=== PATIENT | female | born 1985 | race Caucasian/White ===

== ENCOUNTER 2021-01-29 11:37 | Emergency (ER) | payer MEDICAID, SELFPAY ==
[2021-01-29 11:48] VITALS: BP 162/91; PULSE 69; RESP 16; TEMP 37.1; O2SAT 99; BMI 25.9
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
[2021-01-29] MEDS: LORazepam 1 MG TABLET PO (14:52)
[2021-01-29] MEDS: Buprenorphine/Naloxone 8/2 mg FILM 1 FILM SUBLINGUAL (14:52)
[2021-01-29 14:53] VITALS: BP 154/97; PULSE 59; RESP 16; O2SAT 99
== END 2021-01-29 15:27 | disposition home or self-care (01) ==
PROVIDERS: Emergency Provider Emergency Medicine
DX: F11.13 Opioid abuse with withdrawal (principal); I10 Essential (primary) hypertension
CPT/HCPCS: 99284

== ENCOUNTER → 2021-02-02 13:02 | Outpatient (BNVA) | payer MEDICAID, SELFPAY | PROVIDERS: Visit Provider Internal Medicine | DX: F11.99 Opioid use, unspecified with unspecified opioid-induced disorder (principal) | CPT/HCPCS: 80305; 99202 ==

== ENCOUNTER → 2021-02-09 10:53 | Outpatient (BNVA) | payer MEDICAID, SELFPAY | PROVIDERS: Visit Provider Internal Medicine | DX: Z51.81 Encounter for therapeutic drug level monitoring (principal) | CPT/HCPCS: 80305 ==

== ENCOUNTER → 2021-03-02 14:48 | Outpatient (BNVA) | payer MEDICAID, SELFPAY | PROVIDERS: PCP Physician Assistant; Visit Provider Internal Medicine | DX: F11.99 Opioid use, unspecified with unspecified opioid-induced disorder (principal) | CPT/HCPCS: 80305; 99212 ==

== ENCOUNTER 2021-04-08 14:08 | Outpatient (REF) | payer OTHER, SELFPAY ==
[2021-04-09 10:37] LABS: CT PCR NOT DETECTED (Not Detect.); NG PCR NOT DETECTED (Not Detect.)
[2021-04-09 12:01] LABS: BV Int Neg Control Negative (Negative); BV Int Pos Control Positive (Positive)
[2021-04-13 21:06] LABS: HPV mRNA E6/E7 rflx Not Detected (Not Detected)
== END 2021-04-08 14:09 | disposition home or self-care (01) ==
LOC: HO.LAB 14:08
PROVIDERS: Visit Provider Advanced Practice Midwife
DX: Z01.419 Encounter for gynecological examination (general) (routine) without abnormal findings (principal); Z11.3 Encounter for screening for infections with a predominantly sexual mode of transmission; Z11.51 Encounter for screening for human papillomavirus (HPV); Z20.2 Contact with and (suspected) exposure to infections with a predominantly sexual mode of transmission; F11.99 Opioid use, unspecified with unspecified opioid-induced disorder; N91.1 Secondary amenorrhea
CPT/HCPCS: 87480; 87491; 87510; 87591; 87624; 87660; 88142

== ENCOUNTER 2021-05-25 15:32 | Emergency (ER) | payer OTHER, SELFPAY ==
[2021-05-25 16:41] VITALS: BP 170/103; PULSE 103; RESP 18; TEMP 36.9; O2SAT 100; BMI 25.6
--- NOTE | 2021-05-25 20:01 | PC.NURSE ---
1952: called twice to c no answer.
[2021-05-25 21:24] VITALS: BP 175/120; PULSE 67; RESP 16; O2SAT 98
[2021-05-25 21:35] LABS: MANUAL DIFF FLAG NO
[2021-05-25 21:36] LABS: Basophils Percent Auto 0.3 % (0-2); Eosinophils Percent Auto 0.2 % (0-4); Hematocrit 37.8 % (37-47); Hemoglobin 12.8 g/dl (12.0-16.0); Imm Gran Abs Auto 0.01 X10*3/uL (0.00-0.03); Imm Gran Pct Auto 0.2 % (0.0-0.4); Lymphocytes Absolute Auto 1.1 X10*3/uL (1.2-4.9); Lymphocytes Percent Auto 17.5 % (20-40); Mean Corpuscular HGB Conc 33.9 g/dl (31.0-35.0); Mean Corpuscular Volume 88.7 fL (80-98); Mean Platelet Volume 10.1 fL (9.4-12.3); Monocytes Absolute Auto 0.2 X10*3/uL (0.1-1.2); Monocytes Percent Auto 2.9 % (2-11); Neutrophils Percent Auto 78.9 % (45-73); Platelet Count 241 X10*3/uL (160-400); Red Blood Count 4.26 X10*6/uL (4.20-5.50); Red Cell Distribution Width 12.1 % (11.0-16.0); White Blood Count 6.3 X10*3/uL (4.8-10.8)
[2021-05-25 22:07] LABS: Alanine Aminotransferase 10 U/L (0-31); Alkaline Phosphatase 59 U/L (39-117); Anion Gap 13 (12-20); Aspartate Amino Transferase 11 U/L (5-31); Bilirubin Direct 0.2 mg/dL (0.0-0.5); Bilirubin Total 0.7 mg/dL (0.0-1.0); Blood Urea Nitrogen 20 mg/dL (9-16); Calcium 9.9 mg/dL (8.4-10.2); Carbon Dioxide 26 mmol/L (22-29); Chloride 106 mmol/L (96-108); Creatinine Clr Calc Pharmacy 78.4; Estimated Glomerular Filt Rate > 60; Glucose Random 93 mg/dL (60-115); Lipase 28 U/L (8-78); Magnesium 2.3 mg/dL (1.6-2.6); Potassium 3.7 mmol/L (3.3-5.1); Sodium 141 mmol/L (135-145); Total Protein 8.5 g/dL (6.5-8.0)
[2021-05-25 23:14] VITALS: BP 163/84; PULSE 56; RESP 18; O2SAT 99
--- NOTE | 2021-05-25 23:20 | ED_ITS ---
HPI - General Adult General Chief complaint: General Medical Stated complaint: withdrawl Time Seen by Provider: 05/25/21 17:25 Source: patient Mode of arrival: ambulatory History of Present Illness HPI narrative: 35-year-old female with a past medical history of tubal ligation, HTN, substance abuse presenting to the ED complaining of withdrawal symptoms of nausea, vomiting, abdominal discomfort, tremors x2 days. Admits to using heroin, admits usually snorts 5-6 packs daily, uses cocaine, and marijuana, reports last use of any illicit drugs was 2 days ago. Also reports stopped taking Suboxone. Denies SI/HI. Denies fever, chills, CP/SOB Onset (ago): day(s) Related Data Previous Rx's Medication Instructions Recorded buprenorphine 8 mg-naloxone 2 mg 1 film SUBLINGUAL DAILY 7 Days #7 03/02/21 sublingual film (Suboxone) ea medroxyprogesterone 10 mg tablet 10 mg PO DAILY #10 tab 04/08/21 (Provera) Allergies Allergy/AdvReac Type Severity Reaction Status Date / Time sulfamethoxazole Allergy Hives Verified 04/08/21 14:43 [From Bactrim] trimethoprim [From Bactrim] Allergy Hives Verified 04/08/21 14:43 Review of Systems Review of Systems: Constitutional: No Fever, No Chills, No Fatigue, No Malaise ENT/Mouth: No Ear Pain, No Nasal Congestion, No sore throat, No Rhinorrhea, No Swallowing Difficulty Eyes: No Eye Pain, No Redness Cardiovascular: No Chest Pain, No SOB, No Edema Respiratory: No Cough, No Dyspnea Gastrointestinal: + Nausea, + Vomiting, No Diarrhea, No Constipation, + Abdominal pain Genitourinary: No Dysuria, No Urinary Frequency, No Hematuria, No Flank Pain Musculoskeletal: No joint pain, + Myalgias, No Joint Swelling Skin: No Skin Lesions, No rash Neuro: No Weakness, No Numbness, No Headache Psych: No Anxiety/Panic, No Depression, No SI/HI No Social Issue, Yes all other systems are reviewed and are negative [facility] Past Medical History Attestation statement: The following information was validated with the patient. Medical History Hypertension Opioid use disorder Surgical History H/O tubal ligation Social History Social History Substance Use Type: Crack/Cocaine and Heroin Advance Directives: No Advance Directives Information Provided: Yes Patient : No Physical Exam Vital Signs: Vital Signs: Last Vital Signs Temp 98.5 F 05/25/21 16:41 Pulse 56 05/25/21 23:14 Resp 18 05/25/21 23:14 BP 163/84 H 05/25/21 23:14 Pulse Ox 99 05/25/21 23:14 Body Mass Index 25.6 Const: General: cooperative, healthy appearing and no acute distress Orientation/consciousness: patient oriented x3 Limitations: no limitations HENMT: Head: Yes normal to inspection Ears: hearing grossly normal bilaterally General nose exam: Normal external nose present Face and sinus: Yes normal facial exam Eyes: General: appearance normal, both eyes and all related structures Pupils: Dilated pupils bilaterally EOM: EOMs intact bilaterally Direct Op hthalmoscopy: normal light reflex Neck: Neck: Yes normal visual inspection and Yes supple Resp: Effort & Inspection: normal respiratory effort Auscultation: clear to auscultation bilaterally, no rales, no rhonchi and no wheezes Cardio: Rate: regular rate Heart sounds: S1 normal heart sound present and S2 normal heart sound present GI: Inspection: Yes normal to inspection Palpation (GI): Soft to palpation, nontender, no guarding and not rigid Skin: Wounds: no wounds Neuro: General: patient oriented x3, gait normal and tone normal Gait exam (Neuro): Normal gait present Extrem: General: Yes normal to inspection Psych: Thought content: suicidality and no homicidality Course Course Course Narrative: -tox screen positive for opiates, fentanyl, cocaine, and marijuana -care team consulted, who called a couple detox center's however no beds available tonight, patient is willing to stay in the ED overnight for recovery team to see her in a.m. to continue detox bed search. patient placed in physician observation -0100--ED care transferred to Dr. Wooten pending detox/assistant wrestling coach eval Medical Decision Making MDM Narrative Medical decision making narrative: 35-year-old female with a past medical history of tubal ligation, HTN, substance abuse presenting to the ED complaining of withdrawal symptoms of nausea, vomiting, abdominal discomfort, tremors x2 days. On exam initially hypertensive, patient LWT'ed however returned to the ED, NAD/nontoxic appearing. Patient is interested in detox. Denies SI/HI. Labs drawn from earlier WNL Will obtain MICHAELS/UA and care team consult for detox Lab Data Result diagrams: 05/25/21 21:30 05/25/21 21:30 Labs: Lab Results 05/25/21 05/25/21 05/25/21 Range/Units 21:30 21:30 23:18 WBC 6.3 (4.8-10.8) X10*3/uL RBC 4.26 (4.20-5.50) X10*6/uL Hgb 12.8 (12.0-16.0) g/dl Hct 37.8 (37-47) % MCV 88.7 (80-98) fL MCH 30.0 (27.0-33.0) pg MCHC 33.9 (31.0-35.0) g/dl RDW 12.1 (11.0-16.0) % Plt Count 241 (160-400) X10*3/uL MPV 10.1 (9.4-12.3) fL Immature Gran % (Auto) 0.2 (0.0-0.4) % Neut % (Auto) 78.9 H (45-73) % Lymph % (Auto) 17.5 L (20-40) % Tillman % (Auto) 2.9 (2-11) % Eos % (Auto) 0.2 (0-4) % Baso % (Auto) 0.3 (0-2) % Lymph # (Auto) 1.1 L (1.2-4.9) X10*3/uL Tillman # (Auto) 0.2 (0.1-1.2) X10*3/uL Eos # (Auto) 0.0 (0.0-0.4) X10*3/uL Baso # (Auto) 0.0 (0.0-0.2) X10*3/uL Abs Immat Gran (auto) 0.01 (0.00-0.03) X10*3/uL Absolute Neuts (auto) 5.0 (2.0-8.3) X10*3/uL Absolute Nucleated RBC 0.000 (0.0-0.012) X10*3/uL Nucleated RBC % (auto) 0.0 (0.0-0.2) /100WBC Sodium 141 (135-145) mmol/L Potassium 3.7 (3.3-5.1) mmol/L Chloride 106 (96-108) mmol/L Carbon Dioxide 26 (22-29) mmol/L Anion Gap 13 (12-20) BUN 20 H (9-16) mg/dL Creatinine 0.86 (0.5-1.4) mg/dL Estim Creat Clear Calc 78.4 Estimated GFR > 60 Random Glucose 93 (60-115) mg/dL Calcium 9.9 (8.4-10.2) mg/dL Magnesium 2.3 (1.6-2.6) mg/dL Total Bilirubin 0.7 (0.0-1.0) mg/dL Direct Bilirubin 0.2 (0.0-0.5) mg/dL AST 11 (5-31) U/L ALT 10 (0-31) U/L Alkaline Phosphatase 59 (39-117) U/L Total Protein 8.5 H (6.5-8.0) g/dL Albumin 5.0 (3.5-5.0) g/dL Lipase 28 (8-78) U/L Urine Color YELLOW Urine Appearance CLEAR Urine pH 6.5 (5.0-8.0) Ur Specific [place] >= 1.030 H (1.005-1.025) Urine Protein 2+ H (NEG-TRACE) MG/DL Urine Glucose (UA) NEG (NEG) MG/DL Urine Ketones >=80 (NEG) MG/DL Urine Blood 1+ H (NEG) Urine Nitrite NEG (NEG) Ur Leukocyte Esterase NEG (NEG) Urine RBC 0-2 (0) /HPF Urine WBC 0-2 (0-4) /HPF Ur Squamous Epith Cells TRACE /LPF Urine Bacteria 1+ /LPF Urine Mucus 1+ /LPF Urine Opiates Screen (Not Detect) Urine Fentanyl Screen (Not Detect) Ur Barbiturates Screen (Not Detect) Ur Phencyclidine Scrn (Not Detect) Ur Amphetamines Screen (Not Detect) U Benzodiazepines Scrn (Not Detect) Urine Cocaine Screen (Not Detect) U Marijuana (THC) Screen (Not Detect) 05/25/21 Range/Units 23:18 WBC (4.8-10.8) X10*3/uL RBC (4.20-5.50) X10*6/uL Hgb (12.0-16.0) g/dl Hct (37-47) % MCV (80-98) fL MCH (27.0-33.0) pg MCHC (31.0-35.0) g/dl RDW (11.0-16.0) % Plt Count (160-400) X10*3/uL MPV (9.4-12.3) fL Immature Gran % (Auto) (0.0-0.4) % Neut % (Auto) (45-73) % Lymph % (Auto) (20-40) % Tillman % (Auto) (2-11) % Eos % (Auto) (0-4) % Baso % (Auto) (0-2) % Lymph # (Auto) (1.2-4.9) X10*3/uL Tillman # (Auto) (0.1-1.2) X10*3/uL Eos # (Auto) (0.0-0.4) X10*3/uL Baso # (Auto) (0.0-0.2) X10*3/uL Abs Immat Gran (auto) (0.00-0.03) X10*3/uL Absolute Neuts (auto) (2.0-8.3) X10*3/uL Absolute Nucleated RBC (0.0-0.012) X10*3/uL Nucleated RBC % (auto) (0.0-0.2) /100WBC Sodium (135-145) mmol/L Potassium (3.3-5.1) mmol/L Chloride (96-108) mmol/L Carbon Dioxide (22-29) mmol/L Anion Gap (12-20) BUN (9-16) mg/dL Creatinine (0.5-1.4) mg/dL Estim Creat Clear Calc Estimated GFR Random Glucose (60-115) mg/dL Calcium (8.4-10.2) mg/dL Magnesium (1.6-2.6) mg/dL Total Bilirubin (0.0-1.0) mg/dL Direct Bilirubin (0.0-0.5) mg/dL AST (5-31) U/L ALT (0-31) U/L Alkaline Phosphatase (39-117) U/L Total Protein (6.5-8.0) g/dL Albumin (3.5-5.0) g/dL Lipase (8-78) U/L Urine Color Urine Appearance Urine pH (5.0-8.0) Ur Specific [place] (1.005-1.025) Urine Protein (NEG-TRACE) MG/DL Urine Glucose (UA) (NEG) MG/DL Urine Ketones (NEG) MG/DL Urine Blood (NEG) Urine Nitrite (NEG) Ur Leukocyte Esterase (NEG) Urine RBC (0) /HPF Urine WBC (0-4) /HPF Ur Squamous Epith Cells /LPF Urine Bacteria /LPF Urine Mucus /LPF Urine Opiates Screen POSITIVE H (Not Detect) Urine Fentanyl Screen POSITIVE H (Not Detect) Ur Barbiturates Screen Not Detected (Not Detect) Ur Phencyclidine Scrn Not Detected (Not Detect) Ur Amphetamines Screen Not Detected (Not Detect) U Benzodiazepines Scrn Not Detected (Not Detect) Urine Cocaine Screen POSITIVE H (Not Detect) U Marijuana (THC) Screen POSITIVE H (Not Detect) Discharge Plan Discharge Clinical Impression: Substance abuse Instructions: Narcotic Withdrawal (ED), Narcotic Use Disorder (ED) Additional Instructions: Do not do drugs or drink alcohol it can kill you Please go to detox as discussed If you have any thoughts of hurting herself or hurting others please return to the ED Prescriptions: No Action buprenorphine-naloxone [Suboxone] 8-2 mg film 1 film sublingual DAILY 7 Days Qty: 7 RF: 0 medroxyprogesterone [Provera] 10 mg tablet 10 mg PO DAILY Qty: 10 RF: 0 Referrals: [facility] [Physician] - 2 days Interventions: LWBS Worksheet Last Done: 05/25/21 19:56
[2021-05-25 23:38] LABS: Glucose Urine UA NEG (NEG); Leukocyte Esterase Urine NEG (NEG); Nitrite Urine NEG (NEG); PH 6.5 (5.0-8.0); Specific Gravity - Urine >= 1.030 (1.005-1.025); UACC Culture Trigger NO; Urine Blood 1+ (NEG); Urine Ketones >=80 MG/DL (NEG); Urine Protein 2+ MG/DL (NEG-TRACE)
[2021-05-25 23:41] LABS: Appearance Urine CLEAR; Color Urine YELLOW
[2021-05-26 00:08] LABS: Amphetamine Screen Urine Not Detected (Not Detect); Barbiturates, Urine Not Detected (Not Detect); Benzodiazepines Screen Urine Not Detected (Not Detect); Cannabinoid Screen Urine POSITIVE (Not Detect); Cocaine Screen Urine POSITIVE (Not Detect); Fentanyl, urine POSITIVE (Not Detect); Opiate Screen Urine POSITIVE (Not Detect); Phencyclidine Screen Urine Not Detected (Not Detect)
[2021-05-26 00:15] LABS: Bacteria Urine 1+ /LPF; Mucus Urine 1+ /LPF; RBC Urine 0-2 /HPF (0); Squamous Epithelial Cell Urine TRACE /LPF; WBC Urine 0-2 /HPF (0-4)
[2021-05-26 01:01] VITALS: BP 170/89; PULSE 56; RESP 12; O2SAT 100
--- NOTE | 2021-05-26 01:25 | MHC.CARE ---
Met with pt for consult. Pt is intersted in detox services for heroin. She states she last used two days ago and is interested in detox. She will remain in the ED and states she will attempt to go to sleep. Provider Ness is in agreement with this as pt seems determined for treatment.
[2021-05-26 07:25] VITALS: BP 154/89; PULSE 62; RESP 18; O2SAT 99
--- NOTE | 2021-05-26 09:15 | MHC.RECOVRN ---
T/w spoke with pt to discuss substance use and treatment options. Pt declines referrals to ATS. Pt would like to restart Suboxone, has been on it in the past. Per [facility], pts last script was filled 03/02 for 8/2 mg daily x 7 days. Pt would like to reconnect with the [facility]. Pt reports using heroin, 5-6 bags IN daily, last use 2 days ago. Pt reports withdrawal symptoms-vomiting, diarrhea, restlessness. Pt educated regarding precipitated withdrawal and verbalizes understanding. Case discussed with JAI Celeste. Plan to give pt one dose of Suboxone, monitor, and send script to pharmacy. Pt has appt at the [facility] on 05/31 at 1 pm.
[2021-05-26] MEDS: Buprenorphine/Naloxone 8/2 mg FILM 1 FILM SUBLINGUAL (09:59)
== END 2021-05-26 10:51 | disposition home or self-care (01) ==
PROVIDERS: Physician Assistant; Emergency Provider Emergency Medicine Emergency Medical Services
DX: F11.13 Opioid abuse with withdrawal (principal); I10 Essential (primary) hypertension; R11.2 Nausea with vomiting, unspecified; R10.9 Unspecified abdominal pain; R25.1 Tremor, unspecified; F14.90 Cocaine use, unspecified, uncomplicated; Z79.899 Other long term (current) drug therapy
CPT/HCPCS: 36415; 80048; 80076; 80307; 81001; 83690; 83735; 85025; 99284

== ENCOUNTER → 2021-05-31 13:38 | Outpatient (BNVA) | payer OTHER, SELFPAY | PROVIDERS: Visit Provider Internal Medicine | DX: F11.20 Opioid dependence, uncomplicated (principal); F14.90 Cocaine use, unspecified, uncomplicated; Z51.81 Encounter for therapeutic drug level monitoring; Z79.899 Other long term (current) drug therapy | CPT/HCPCS: 80305; 99212 ==

== ENCOUNTER → 2021-08-02 10:09 | Outpatient (BNVA) | payer OTHER, SELFPAY | PROVIDERS: Visit Provider Internal Medicine | DX: F11.99 Opioid use, unspecified with unspecified opioid-induced disorder (principal); I10 Essential (primary) hypertension; F14.90 Cocaine use, unspecified, uncomplicated; F17.210 Nicotine dependence, cigarettes, uncomplicated | CPT/HCPCS: 80305; 99212 ==

== ENCOUNTER 2021-09-01 19:22 | Emergency (ER) | payer OTHER, SELFPAY ==
[2021-09-01 19:27] VITALS: BP 191/89; PULSE 91; RESP 18; TEMP 36.8; O2SAT 100; BMI 26.6
--- NOTE | 2021-09-01 20:02 | ED.GENADULT ---
HPI - General Adult General Chief complaint: General Medical Stated complaint: Medication refill Time Seen by Provider: 09/01/21 19:35 Source: patient Mode of arrival: ambulatory Limitations: no limitations History of Present Illness HPI narrative: 36-year-old female with history of HTN, opioid use disorder, cocaine and marijuana abuse and recent opioid relapse and re-initiation of Suboxone by Dr. Brown on 08/02 presents to the ER for a dose of Suboxone. She states her last dose was 5 days ago. She breaks apart the Suboxone and makes it last for longer than it is intended for. She reported in triage her last use of drugs was about a month ago. She admitted to this sql report writer that she last used intranasal heroin 3 days ago. MD complaint: Opiate withdrawal Onset (ago): day(s) Location: head, chest and abdomen Radiation: non-radiation Severity: moderate Quality: aching Pain Consistency: constant Relieving factors: none Exacerbating factors: none Associated symptoms: diaphoresis, fever/chills, headaches, loss of appetite, malaise and nausea/vomiting Treatments prior to arrival: none Related Data Previous Rx's Medication Instructions Recorded buprenorphine 8 mg-naloxone 2 mg 1 film SUBLINGUAL DAILY 7 Days #7 03/02/21 sublingual film (Suboxone) ea buprenorphine 8 mg-naloxone 2 mg 2 film SUBLINGUAL DAILY 7 Days #14 08/02/21 sublingual film (Suboxone) ea ondansetron 4 mg disintegrating 4 mg PO Q8H PRN #7 tab 09/01/21 tablet Allergies Allergy/AdvReac Type Severity Reaction Status Date / Time sulfamethoxazole Allergy Hives Verified 09/01/21 19:27 [From Bactrim] trimethoprim [From Bactrim] Allergy Hives Verified 08/02/21 10:19 Review of Systems Review of Systems: Constitutional: + Fever, + Chills ENT/Mouth: No sore throat, No Rhinorrhea, No Swallowing Difficulty Cardiovascular: No Chest Pain, No SOB, No Orthopnea, No Edema Respiratory: No Cough, No Sputum, No Wheezing, No dyspnea Gastrointestinal: + Nausea, + Vomiting, + Diarrhea, No abdominal Pain, No Hematochezia, No Melena Genitourinary: No Dysuria, No Urinary Frequency, No Hematuria Musculoskeletal: No joint pain, No Myalgias Skin: No Skin Lesions, No rash Neuro: No Weakness, No Numbness, No Dizziness, + Headache Psych: + Anxiety/Panic, + Depression, No SI Heme/Lymph: No Bruising, No Lymphadenopathy PMF Past Medical History Medical History Cocaine use Hypertension Opioid use disorder Surgical History H/O tubal ligation Social History Social History Alcohol intake: former Patient Tobacco Use Status: Current everyday Tobacco user Cigarettes Per Day: 4 Years Smoked: 10 Substance Use Type: Crack/Cocaine and Heroin Advance Directives: No Advance Directives Information Provided: No Patient : No Physical Exam Vital Signs: Vital Signs: Last Vital Signs Temp 98.2 F 09/01/21 19:27 Pulse 90 09/01/21 21:15 Resp 18 09/01/21 19:27 BP 191/83 H 09/01/21 21:15 Pulse Ox 100 09/01/21 19:27 Body Mass Index 26.6 Appearance: Alert. Oriented X3. No acute distress, lying on the recliner curled in a ball. Not diaphoretic or tremulous Eyes: Pupils equal, round and reactive to light. ENT: Pharynx normal. Neck: Normal inspection. Neck supple. CVS: Normal heart rate and rhythm. Pulses normal. Respiratory: No respiratory distress. Breath sounds normal. Abdomen: Soft and nontender. +BS x4 Skin: Skin warm and dry. Normal skin color. Normal skin turgor. No rashes. Extremities: No track burciaga on UE Neuro: Oriented X 3. No motor deficit. No sensory deficit. Course Course Course Narrative: 36-year-old female with history of opioid use disorder and current struggling with relapse presents to the ER for Suboxone dose. She was seen by on August 02 and given 1 week worth of Suboxone at that time. She did not present back to the clinic as she was instructed to. She presents to the ER asking for Suboxone today. She is hypertensive 191/89, HR 91. She reports her blood pressure is always very high and she is no longer taking her previously prescribed blood pressure medications, she cannot remember the name of them. She just moved here from [place] not very long ago. Reevaluation(s) Reevaluation #1: Urine toxicology is positive for fentanyl & cocaine. She admits using intranasal heroin 3 days ago. We discussed the risks and benefits of Suboxone with recent heroin use. She would most likely experience vomiting and worsening symptoms if she were to get Suboxone today in the emergency department. Will treat her symptoms with clonidine, Zofran, Imodium. She does not appear in any distress and she appears comfortable. She agrees follow-up with Dr. Brown. She is not interested in detox at this time. She is stable for [place] home with plan to follow up with recovery services here on Sunday. Medical Decision Making Lab Data Labs: Lab Results 09/01/21 Range/Units 20:12 Urine Opiates Screen Not Detected (Not Detect) Urine Fentanyl Screen POSITIVE H (Not Detect) Ur Barbiturates Screen Not Detected (Not Detect) Ur Phencyclidine Scrn Not Detected (Not Detect) Ur Amphetamines Screen Not Detected (Not Detect) U Benzodiazepines Scrn Not Detected (Not Detect) Urine Cocaine Screen POSITIVE H (Not Detect) U Marijuana (THC) Screen Not Detected (Not Detect) Discharge Plan Discharge Clinical Impression: Opioid use disorder, Cocaine use Patient Disposition: Home, Self-Care Instructions: Cocaine Abuse (ED), Opioid Use Disorder (ED) Additional Instructions: Take the prescribed medication as needed for nausea Your urine was positive for fenanyl and cocaine - unable to safely give you Suboxone today. Recommend CONTINUED SOBRIETY - STAY AWAY FROM HEROIN AND FENTANYL. IT CAN KILL YOU Follow up with Dr. Brown in the Suboxone Clinic on Sunday Prescriptions: New ondansetron 4 mg tablet,disintegrating 4 mg PO Q8H PRN (Reason: nausea and vomiting) Qty: 7 RF: 0 No Action buprenorphine-naloxone [Suboxone] 8-2 mg film 1 film sublingual DAILY 7 Days Qty: 7 RF: 0 buprenorphine-naloxone [Suboxone] 8-2 mg film 2 film sublingual DAILY 7 Days Qty: 14 RF: 0
[2021-09-01 20:37] LABS: Amphetamine Screen Urine Not Detected (Not Detect); Barbiturates, Urine Not Detected (Not Detect); Benzodiazepines Screen Urine Not Detected (Not Detect); Cannabinoid Screen Urine Not Detected (Not Detect); Cocaine Screen Urine POSITIVE (Not Detect); Fentanyl, urine POSITIVE (Not Detect); Opiate Screen Urine Not Detected (Not Detect); Phencyclidine Screen Urine Not Detected (Not Detect)
[2021-09-01 21:15] VITALS: BP 191/83; PULSE 90
[2021-09-01] MEDS: Loperamide HCl 2 MG CAPSULE PO (21:15)
[2021-09-01] MEDS: Ondansetron ODT 4 MG TAB.RAPDIS TRANSLINGU (21:15)
[2021-09-01] MEDS: cloNIDine HCL 0.1 MG TABLET PO (21:15)
== END 2021-09-01 21:48 | disposition home or self-care (01) ==
PROVIDERS: Physician Assistant; Emergency Provider Student in an Organized Health Care Education/Training Program; PCP Physician Assistant
DX: F11.20 Opioid dependence, uncomplicated (principal); F14.90 Cocaine use, unspecified, uncomplicated; R11.10 Vomiting, unspecified; I10 Essential (primary) hypertension; R68.83 Chills (without fever)
CPT/HCPCS: 80307; 99284

== ENCOUNTER 2021-09-03 11:37 | Emergency (ER) | payer OTHER, SELFPAY ==
[2021-09-03 11:40] VITALS: BP 147/99; PULSE 100; RESP 18; TEMP 36.7; O2SAT 98; BMI 25.9
--- NOTE | 2021-09-03 11:59 | ED_ITS ---
HPI - General Adult General Chief complaint: General Medical Stated complaint: medication Time Seen by Provider: 09/03/21 11:44 Source: patient Mode of arrival: ambulatory Limitations: no limitations History of Present Illness HPI narrative: 36-year-old female with opioid use disorder presents because able to and Suboxone does. She takes Suboxone, 8mg-2mg, and states she has not had it in 4 days. She told me she has not used recently. States that she had an appointment at the clinic, but she was late for her appointment and then the clinic has been closed for the holiday. States she has had diarrhea, and feels nauseous. Patient was prescribed a 7 day supply of Suboxone on 08/02/2021, and patient states she does not always take Suboxone every day. She breaks film and half and takes that as needed. Paras from the [facility] came and spoke with patient. Patient wants to get back on Suboxone. Patient told Paras that her last use was Sunday, 5 days ago. Rain states she is in a safe window to not precipitate withdrawal, as she has had no opioid use in the last 5 days. Plan is to give Suboxone now, and Dr. nicholson can write a bridge script until patient is seen in clinic on Sunday. [facility], and patient will be advised to go there Sunday. Related Data Previous Rx's Medication Instructions Recorded buprenorphine 8 mg-naloxone 2 mg 1 film SUBLINGUAL DAILY 7 Days #7 03/02/21 sublingual film (Suboxone) ea buprenorphine 8 mg-naloxone 2 mg 2 film SUBLINGUAL DAILY 7 Days #14 08/02/21 sublingual film (Suboxone) ea ondansetron 4 mg disintegrating 4 mg PO Q8H PRN #7 tab 09/01/21 tablet Allergies Allergy/AdvReac Type Severity Reaction Status Date / Time sulfamethoxazole Allergy Hives Verified 09/01/21 19:27 [From Bactrim] trimethoprim [From Bactrim] Allergy Hives Verified 08/02/21 10:19 Review of Systems Constitutional: Constitutional: Reports body ache(s), Denies chills, Reports fatigue, Denies fever(s), Denies headache(s), Denies malaise and Denies weakness Eyes: Eyes: Denies diplopia ENT: Denies vertigo, Denies dizziness, Denies otalgia, Denies headache(s), Denies mouth pain, Denies post nasal drip, Denies sinus pain, Denies sinus pressure, Denies sore throat and Denies throat swelling Cardiovascular: Cardiovascular: Denies chest pain, Denies syncope, Denies leg edema, Denies lightheadedness, Denies Loss of Consciousness, Denies palpitations and Denies dyspnea Respiratory: Respiratory: Denies chest congestion, Denies cough and Denies dyspnea Gastrointestinal: Gastrointestinal: Denies abdominal pain, Denies hematochezia, Denies constipation, Reports diarrhea, Reports nausea and Denies vomiting Genitourinary: Genitourinary: Reports no additional female genitourinary complaints Integumentary/Breasts: Skin/Breast: Denies rash Neurologic: Denies confusion, Denies vertigo, Denies dizziness, Denies syncope, Denies headache(s) and Denies weakness Psychiatric: Psychiatric: Reports anxiety, Denies confusion and Denies depression Endocrine: Endocrine: Reports fatigue and Denies palpitations Allergic/Immunologic: Allergic/Immunologic: Denies throat swelling PMFSH Past Medical History Medical History Cocaine use Hypertension Opioid use disorder Surgical History H/O tubal ligation Social History Social History Alcohol intake: former Patient Tobacco Use Status: Current everyday Tobacco user Cigarettes Per Day: 4 Years Smoked: 10 Substance Use Type: Crack/Cocaine and Heroin Advance Directives: No Advance Directives Information Provided: No Patient : No Physical Exam Vital Signs: Vital Signs: Last Vital Signs Temp 98.0 F 09/03/21 11:40 Pulse 100 09/03/21 11:40 Resp 18 09/03/21 11:40 BP 147/99 H 09/03/21 11:40 Pulse Ox 98 09/03/21 11:40 Body Mass Index 25.9 Const: Other: Dressed in eCert General: cooperative, no acute distress, alert and awake; No confusion or intoxicated appearing Nutritional Appearance: well nourished Orientation/consciousness: patient oriented x3 and No confusion Limitations: no limitations HENMT: Head: Yes normal to inspection, Yes normocephalic and Yes atraumatic Ears: hearing grossly normal bilaterally, external ears normal, TM's normal bilaterally and EAC's normal General nose exam: Normal external nose present Face and sinus: Yes normal facial exam and Yes sinuses nontender Mouth: Normal oral and palatal mucosa present Throat: Yes posterior oropharynx normal Eyes: Conjunctivae: conjunctivae normal Pupils: Equal, round and reactive pupils present EOM: EOMs intact bilaterally Neck: Neck: Yes full ROM, Yes no lymphadenopathy and Yes supple Resp: Effort & Inspection: normal respiratory effort and able to speak in complete sentences Auscultation: clear to auscultation bilaterally, no crac kles, no rales, no rhonchi and no wheezes Cardio: Rate: regular rate Rhythm: regular rhythm Heart sounds: S1 normal heart sound present and S2 normal heart sound present GI: Inspection: Yes normal to inspection Palpation (GI): Soft to palpation, Tenderness to palpation present (GI) (diffusely), no guarding and not rigid Percussion: Yes normal to percussion Auscultation: normal bowel sounds Skin: General skin exam: no rashes or lesions noted Neuro: General: patient oriented x3 and No confusion Cranial nerves: Yes Equal, round and reactive pupils present Extrem: General: Yes normal to inspection and Yes full ROM Psych: Appearance: grossly normal Affect: normal affect Attitude: cooperative Thought process: Normal thought process present Course Course Course Narrative: 36-year-old female who would like to restart on Suboxone presents for Suboxone dose. Patient evaluated by Paras opioid addiction worker, and patient advised to go to [facility] on Sunday to get restarted on her addiction treatment. In the interim, Dr. Rayo will prescribe bridge Suboxone Discharge Plan Discharge Clinical Impression: Opioid use disorder Patient Disposition: Home, Self-Care Instructions: Opioid Withdrawal (ED), Opioid Use Disorder (ED) Additional Instructions: please go to the [facility] on Sunday to get reestablished for treatment of opioid use disorder. A clinic as a walk-in, and you do not need an appointment. We will prescribe Suboxone for you in till then. Please return to emergency room for any new or concerning symptoms. Prescriptions: No Action ondansetron 4 mg tablet,disintegrating 4 mg PO Q8H PRN (Reason: nausea and vomiting) Qty: 7 RF: 0 buprenorphine-naloxone [Suboxone] 8-2 mg film 1 film sublingual DAILY 7 Days Qty: 7 RF: 0 buprenorphine-naloxone [Suboxone] 8-2 mg film 2 film sublingual DAILY 7 Days Qty: 14 RF: 0 Referrals: Misa Brown MD [Physician] - 2 days (wants to re-start suboxone)
--- NOTE | 2021-09-03 12:10 | PC.NURSE ---
PT HERE FOR SUBOXONE REFILL. PT STATES SHE MISSED HER APPOINTMENT WITH [facility] AND THAT DR DELATORRE IS HER PRESCRIBER FOR 8MG BID. PT STATES SHE HAS NOT TAKEN THIS MEDICATION IN ABOUT 4 DAYS. DENIES USING AND OTHER DRUGS OR MEDICATIONS.
[2021-09-03] MEDS: Buprenorphine/Naloxone 4/1 mg FILM 1 FILM SUBLINGUAL (12:46)
--- NOTE | 2021-09-03 12:47 | MHC.RECOVSUP ---
Recovery Support note: Patient is a 36 year old Sami speaking female who presented to [facility] in withdrawal seeking Suboxone. This entry writer met with patient to discuss substance use and treatment options. Patient reports she was previously going to the [facility] for Suboxone however was unable to keep up with the appointments. Patient tried to go as a walk in but the clinic was unable to fit her in. Patient presented to [facility] ED on 09/01 however was not given Suboxone due to testing positive for fentanyl and opiates and fear that Suboxone may precipitate withdrawal. Patient reports to this entry writer that she has not used since Sunday and prior to Sunday she was using 3-4 bags every other day. Patient reports interest in restarting Suboxone and reconnecting with the [facility]. Discussed case with patient's provider and ED physician. Plan for patient to get small dose of Suboxone in the ED and a script for 3 days of Suboxone to bridge her until she can get to the [facility] on Sunday. Patient is agreeable and reports no questions at this time. Patient plans to present to the [facility] at 1000 on Sunday. Patient provided with contact information for this entry writer in the event that patient has additional questions after discharge or difficulties making it to the [facility].
== END 2021-09-03 13:00 | disposition home or self-care (01) ==
PROVIDERS: Emergency Provider Emergency Medicine; PCP Physician Assistant
DX: F11.20 Opioid dependence, uncomplicated (principal); I10 Essential (primary) hypertension
CPT/HCPCS: 99283

== ENCOUNTER → 2021-09-05 10:47 | Outpatient (BNVA) | payer OTHER, SELFPAY | PROVIDERS: Visit Provider Internal Medicine | DX: F11.20 Opioid dependence, uncomplicated (principal); Z51.81 Encounter for therapeutic drug level monitoring; Z79.899 Other long term (current) drug therapy | CPT/HCPCS: 80305; 99212 ==

== ENCOUNTER → 2021-09-21 10:51 | Outpatient (BNVA) | payer OTHER, SELFPAY | PROVIDERS: Visit Provider Internal Medicine | DX: F11.20 Opioid dependence, uncomplicated (principal); Z51.81 Encounter for therapeutic drug level monitoring; Z79.899 Other long term (current) drug therapy | CPT/HCPCS: 80305; 99212 ==

== ENCOUNTER → 2021-10-03 10:38 | Outpatient (BNVA) | payer OTHER, SELFPAY | PROVIDERS: Visit Provider Internal Medicine | DX: Z51.81 Encounter for therapeutic drug level monitoring (principal); F11.20 Opioid dependence, uncomplicated | CPT/HCPCS: 80305 ==

== ENCOUNTER 2023-08-30 00:17 | Emergency (ER) | payer OTHER, SELFPAY ==
[2023-08-30 00:32] VITALS: BP 136/82; PULSE 64
[2023-08-30 00:39] VITALS: BP 158/83; PULSE 87; RESP 14; TEMP 37.1; O2SAT 100; BMI 26.6
--- NOTE | 2023-08-30 00:55 | ED.OVERDOSE ---
HPI - Overdose General Chief Complaint: Overdose Stated Complaint: overdose Time Seen by Provider: 08/30/23 00:52 Source: patient and old records reviewed Mode of arrival: EMS Limitations: no limitations History of Present Illness HPI Narrative: 38 yo female on daily suboxone admits to snorting cocaine tonight then overdosed. She was found by her cousin. Was given 8mg narcan prior to arrival has n/v, yawning and chills. No SI. Has bump on head but GCS [address] scan states she is fine. Agrees to stay for observation does not want detox or rehab. complaint: accidental overdose Onset (ago): minute(s) Intent: other Context: Accidental Overdose: wanted to get high and other (snorted cocaine then overdose, was with her cousin) Associated symptoms: nausea/vomiting Treatments Prior to Arrival: narcan (8mg) Related Data Previous Rx's Medication Instructions Recorded buprenorphine 8 mg-naloxone 2 mg 2 film sublingual DAILY recovery 08/02/21 sublingual film (Suboxone) 7 days #14 ea ondansetron 4 mg disintegrating 4 mg PO Q8H PRN nausea and 09/01/21 tablet vomiting #7 tabs buprenorphine 8 mg-naloxone 2 mg 2 film sublingual DAILY 7 days #14 09/05/21 sublingual film (Suboxone) ea buprenorphine 8 mg-naloxone 2 mg 2 film sublingual DAILY 3 days #6 09/21/21 sublingual film (Suboxone) ea buprenorphine 8 mg-naloxone 2 mg 2 film sublingual DAILY 3 days #6 10/03/21 sublingual film (Suboxone) ea Allergies Allergy/AdvReac Type Severity Reaction Status Date / Time sulfamethoxazole Allergy Hives Verified 08/30/23 00:57 [From Bactrim] trimethoprim [From Bactrim] Allergy Hives Verified 08/30/23 00:57 Review of Systems Review of Systems: Constitutional : No Fever, pos Chills, No Fatigue ENT/Mouth : No sore throat, No Rhinorrhea Eyes: No Eye Pain, No Swelling, No Redness Cardiovascular : No Chest Pain, No SOB, No Dyspnea on Exertion Respiratory : No Cough, No Sputum Gastrointestinal : pos Nausea, pos Vomiting, No Diarrhea, No abdominal Pain Genitourinary : No Dysuria, No Urinary Frequency, No Hematuria, Musculoskeletal : No joint pain, No Myalgias, No Joint Swelling Skin : No Skin Lesions, No rash Neuro : No Weakness, No Numbness, No Dizziness, no Headache Psych : No Anxiety/Panic, No Depression Heme/Lymph: No Bruising, No Bleeding,No Lymphadenopathy Endocrine : No Polyuria, No Polydipsia All other systems reviewed and are negative [facility] Past Medical History Attestation statement: The following information was validated with the patient. Source: old records reviewed Medical History Cocaine use Opioid use disorder Hypertension Surgical History H/O tubal ligation Social History Alcohol intake: former Patient Tobacco Use Status: Current everyday Tobacco user Cigarettes Per Day: 4 Years Smoked: 10 Substance Use Type: Crack/Cocaine and Heroin Physical Exam Vital Signs: Vital Signs: Last Vital Signs Temp 98.7 F 08/30/23 00:39 Pulse 87 08/30/23 00:39 Resp 14 08/30/23 00:39 BP 158/83 H 08/30/23 00:39 Pulse Ox 100 08/30/23 00:39 O2 Del Method Room Air 08/30/23 00:39 BMI result Body Mass Index 26.6 Appearance: Alert. Oriented X3. No acute distress. Anxious, yawning Eyes: Pupils equal, round and reactive to light. ENT: Pharynx normal. on forehead small contusion noted R side Neck: Normal inspection. Neck supple. CVS: Normal heart rate and rhythm. Pulses normal. Respiratory: No respiratory distress. Breath sounds normal. Abdomen: Soft and nontender. Skin: Skin warm and dry. Normal skin color. Normal skin turgor. piloerection Extremities: No lower extremity edema. No calf ttp Neuro: Oriented X 3. No motor deficit. No sensory deficit. Course Course Course Narrative: signed out to Dr. Lobo pending repeat assessment Medical Decision Making Medical Decision Making MDM Narrative: 38 yo female on daily suboxone admits to snorting cocaine tonight then overdosed responded to 8mg narcan - no SI and does not want rehab or detox. At this time will observe, given narcan to take home, IM zofran for nausea and vomiting. She is GCS [address] head for trauma no other signs of injury she is alert and oriented right now and able to refuse, not on blood thinners. Differential Diagnosis Differential Diagnoses: The differential diagnosis associated with the presentation includes overdose, substance abuse Admission/Observation Consideration of admission/observation: Escalation of care including admission/observation considered observe until clinically sober Independent Historian Clinical information obtained from an independent historian. History obtained from or confirmed by: EMS External Record Review External record reviewed: Inpatient record Tests considered The following testing was considered but not selected: CT head but patient refuses Prescription Management I considered prescription management with: Other Discharge Plan Discharge Clinical Impression: Cocaine use Accidental overdose Qualifiers: Encounter type: initial encounter Qualified Code(s): T50.901A - Poisoning by unspecified drugs, medicaments and biological substances, accidental (unintentional), initial encounter Patient Disposition: Home, Self-Care Instructions: Cocaine Abuse (ED), Adult Overdose (ED) Additional Instructions: carry narcan with you return for worsening pain, fevers, coughing, shortness of breath or any other concerns. you had a small bump on your head and CT scan was offered but you refused. Prescriptions: No Action ondansetron 4 mg tablet,disintegrating 4 mg PO Q8H PRN (Reason: nausea and vomiting) Qty: 7 0RF buprenorphine-naloxone [Suboxone] 8-2 mg film 2 film sublingual DAILY 7 Days Qty: 14 0RF Rx Instructions: NEEDS ONLY 5 SUBLINGUAL TOTAL FOR ADDICTION TX buprenorphine-naloxone [Suboxone] 8-2 mg film 2 film sublingual DAILY 7 Days Qty: 14 0RF Rx Instructions: place 1 strip/tab under (each) side of tongue buprenorphine-naloxone [Suboxone] 8-2 mg film 2 film sublingual DAILY 3 Days Qty: 6 0RF Rx Instructions: place 1 strip/tab under (each) side of tongue buprenorphine-naloxone [Suboxone] 8-2 mg film 2 film sublingual DAILY 3 Days Qty: 6 0RF Rx Instructions: place 1 strip/tab under (each) side of tongue
[2023-08-30 01:20] LABS: Glucose, Whole Blood 79 mg/dL (60-115)
[2023-08-30] MEDS: ondansetron HCL 4 MG/2 ML VIAL IM (01:22)
--- NOTE | 2023-08-30 01:44 | PC.NURSE ---
Addendum entered by Rochelle Whitten 08/30/23 04:29: Pt appears to be sleeping, equal, non labored RR, no apparent distress. Addendum entered by Rochelle Whitten 08/30/23 01:57: Pt changed over to hospital attire by prosthetics lab technician and security, belongings in decon. Original Note: Pt A&Ox3, reports not remembering what happened. Admits to ETOH and cocaine use tonight. Pt had two episodes of vomiting, med given per DEC. Hematoma noted to forehead area, Pt denies any falls/injury.
[2023-08-30 02:15] VITALS: BP 124/72; PULSE 67; RESP 16; TEMP 36.6; O2SAT 98
[2023-08-30 02:53] VITALS: BP 120/67; PULSE 67; RESP 16; O2SAT 98
--- NOTE | 2023-08-30 02:53 | MHC.EDTECH ---
Belongings are in [place]
[2023-08-30 04:20] VITALS: BP 131/75; PULSE 74; RESP 16; TEMP 36.7; O2SAT 98
--- NOTE | 2023-08-30 04:56 | MHC.EDTECH ---
Hourly rounds and vitals completed,patient giving two apple juices per request.
[2023-08-30] MEDS: Naloxone HCl Nasal TAKE HOME 4 MG SPRAY 8 MG NOSTRILALT (05:20)
== END 2023-08-30 05:27 | disposition home or self-care (01) ==
PROVIDERS: Emergency Provider Emergency Medicine
DX: T40.5X1A Poisoning by cocaine, accidental (unintentional), initial encounter (principal); R11.2 Nausea with vomiting, unspecified; Y92.9 Unspecified place or not applicable; F14.90 Cocaine use, unspecified, uncomplicated; F11.20 Opioid dependence, uncomplicated; I10 Essential (primary) hypertension; F17.210 Nicotine dependence, cigarettes, uncomplicated
CPT/HCPCS: 82947; 96372; 99284; J2405